=== PATIENT | male | born 1970 | race Caucasian/White ===

== ENCOUNTER → 2019-06-10 | Outpatient (CLI) | payer OTHER ==
--- NOTE | 2019-06-10 11:00 | Diagnostic Imaging Report ---
PROCEDURE: MRI lumbar spine. TECHNIQUE: Multiplanar, multisequence MRI of the lumbar spine was performed without contrast. INDICATION: Low back pain worsening over the past week. COMPARISON: I have no previous for comparison. FINDINGS: There are postsurgical changes to the L5 lamina on the right. No paraspinal fluid collection. The conus appeared normal. The nerves of the cauda equina are normally dispersed. Lumbar statures normal. The alignment is within normal limits. T12-L1: Very slight anterior osteophyte disc material at this level is present. The spinal canal, foramina and recesses widely patent. L1-L2: Minimal disc bulge at this level results in no canal, foraminal or recess stenosis. L2-L3: There is disc desiccation. There is loss of disc stature. There is eccentric broad-based bulging of this disc associated with some annular fiber tearing posteriorly towards the right. Disc material indents the ventral thecal sac. There is mild to moderate canal stenosis and there is a borderline mild degree of right foraminal narrowing. L3-L4: Broad-based posterior disc protrusion indents the ventral thecal sac with severe canal stenosis and impingement upon the left greater than right lateral recesses as well as mild left foraminal narrowing. L4-L5: Posterior disc protrusion at this level is somewhat greater left than right and severely stenosis the left L5 lateral recess. Disc material effaces the ventral epidural fat and mildly indents the thecal sac itself but a substantial degree of canal stenosis was not present. There is moderate to severe left and moderate right neural foraminal narrowing. L5-S1: Right paramedian broad-based disc protrusion indents the ventral thecal sac but only results in mild canal stenosis. There is mild biforaminal narrowing. IMPRESSION: Prior surgery. No fluid collection. No acute bony pathology. Multilevel canal, foraminal and recess stenoses listed level by level above greatest at L3-L4 and L4-L5. Dictated by: Dictated on workstation # [id number]
== END ==
LOC: RAD 08:59
PROVIDERS: ATTEND Physician Assistant
DX: M51.27 Other intervertebral disc displacement, lumbosacral region (principal); M48.07 Spinal stenosis, lumbosacral region; M51.36 Other intervertebral disc degeneration, lumbar region; M25.78 Osteophyte, vertebrae; Z98.890 Other specified postprocedural states
CPT/HCPCS: 72148

== ENCOUNTER → 2020-02-05 | Outpatient (CLI) | payer BC ==
--- NOTE | 2020-02-05 13:01 | Diagnostic Imaging Report ---
PROCEDURE: MRI left joint lower extremity without contrast. TECHNIQUE: Multiplanar, multisequence non contrast-enhanced MRI of the left lower extremity was accomplished. INDICATION: Knee pain. COMPARISON: There are no prior studies available for comparison. FINDINGS: The proton dense fat-saturated sagittal series shows a broad irregular area of abnormal signal involving the inferior articular surface of the mid portion and posterior horn of the medial meniscus. This would be consistent with a tear. There is also a vague area of slightly increased signal within the posterior horn of the medial meniscus. This is in close proximity to the inferior articular surface and this may represent a small tear as well. Degenerative disease involving the anterior and posterior horns of the lateral meniscus is also evident. The anterior and posterior cruciate ligaments and the quadriceps and inferior patellar tendons are intact. There is edema/inflammation about the medial collateral ligament and the MCL may be slightly torn. The fibular collateral ligament, the biceps femoris tendon, and iliotibial band are intact. There is moderate degenerative disease of the medial compartment of the knee joint and mild degenerative disease of the lateral compartment and the patellofemoral space. There is no abnormal signal arising from the osseous structures to suggest bone edema related to a fracture. There is a small amount of increased signal in the subarticular region of the medial most portion of the proximal tibia on the coronal STIR series. This could be secondary to mild edema related to the degenerative changes involving the knee joint. There is a small joint effusion present. There is also a prominent 1.2 x 5.4 cm Qiu's cyst. Furthermore, there is increased signal in the soft tissues along the inferior margin of the Qiu's cyst. This may be due to edema/inflammation of the tissue secondary to partial rupture of the cyst contents. There is also mild soft tissue edema along the anterior aspect of the knee joint. IMPRESSION: 1. The mid portion and the posterior horn of the medial meniscus are torn. There also appears to be a small tear of the inferior articular surface of the posterior horn of the lateral meniscus. 2. There is edema/inflammation about the medial collateral ligament and the MCL itself is felt to be slightly torn as well. The other major ligaments and tendons are intact. 3. There is degenerative disease involving the knee joint with the medial compartment the most severely affected. There is no acute bony abnormality noted. 4. There is a small joint effusion. 5. There is a Qiu's cyst. Furthermore, the soft tissues along the inferior margin of the Qiu's cyst do show edema/inflammation. This may be secondary to partial rupture of the cyst contents into the soft tissues. Dictated by: Dictated on workstation # [id number]
== END ==
LOC: RAD 09:06
PROVIDERS: ATTEND Nurse Practitioner
DX: M23.232 Derangement of other medial meniscus due to old tear or injury, left knee (principal); M17.12 Unilateral primary osteoarthritis, left knee; M71.22 Synovial cyst of popliteal space [Baker], left knee; M25.462 Effusion, left knee; S83.242A Other tear of medial meniscus, current injury, left knee, initial encounter
CPT/HCPCS: 73721